=== PATIENT | male | born 1970 | race Caucasian/White ===

== ENCOUNTER 2019-04-13 21:32 | Emergency (ER) | payer SELFPAY ==
[2019-04-13 21:34] VITALS: BP 132/90
--- NOTE | 2019-04-13 21:38 | ER Report ---
History and Physical Time Seen By MD: 21:33 HPI/ROS CHIEF COMPLAINT: [facility] clearance HISTORY OF PRESENT ILLNESS: 49-year-old male brought in by police for detention clearance. Patient's grossly intoxicated. He put his right hand through a glass window. There are numerous cuts on his right hand, most appear to be superficial. Patient's refusing tetanus shot and care. Patient's uncooperative. REVIEW OF SYSTEMS: Unable to obtain due to poor cooperation Allergies: Coded Allergies: No Known Drug Allergies (Unverified , 04/13/19) Home Meds No Active Prescriptions or Reported Meds Reviewed Nurses Notes: Yes Constitutional Vital Sign - Last 24 Hours 04/13/19 21:34 Temp 98.7 Pulse 95 Resp 18 B/P (MAP) 132/90 Pulse Ox 89 O2 Delivery Room Air Physical Exam Vital signs stable, afebrile, pulse ox normal General Appearance: The patient is alert, has no immediate need for airway protection and no current signs of toxicity. Heavily slurred speech consistent with alcohol intoxication, heavy odor of EtOH on breath, palpation of the head and neck HEENT:: Pupils equal and round no injection. Oropharynx without dental trauma Respiratory: Chest is non tender, lungs are clear to auscultation. No chest wall tenderness Cardiac: regular rate and rhythm Gastrointestinal: Abdomen is soft and non tender, no masses, bowel sounds no rmal. Musculoskeletal: Neck: Neck is supple and non tender. Extremities have full range of motion and are non tender. Close examination, the right hands reveals numerous superficial cuts consistent with glass cuts. There are no palpable foreign bodies. There appears to be full range of motion of all digits. Skin: No rashes or lesions. DIFFERENTIAL DIAGNOSIS: After history and physical exam differential diagnosis was considered for detention clearance, alcohol intoxication, polysubstance abuse Medical Decision Making ED Course/Re-evaluation ED Course Patient was admitted to an examination room. H&P was done. The differential diagnosis was considered. On clinical examination. Patient voices no complaints. He is uncooperative. He appears grossly intoxicated. There is some superficial cuts on his right hand noted. Wounds are cleaned and dressed with gauze. She is medically cleared for detention admission. Decision to Disposition Date: Apr 13, 2019 Decision to Disposition Time: 21:38 Depart Departure Latest Vital Signs Vital Signs Date Time Temp Pulse Resp B/P (MAP) Pulse Ox O2 Delivery O2 Flow Rate FiO2 6/4/19 21:34 98.7 95 18 132/90 89 Room Air Impression: Primary Impression: Medical clearance for incarceration Additional Impressions: Alcohol intoxication Open wound of right hand Condition: Improved Disposition: [facility] TO HALF-WAY/CORRECTIONAL F New Scripts No Active Prescriptions or Reported Meds Patient Instructions: Acute Wound Care (ED), Alcohol Intoxication (ED) Additional Instructions: Medical cleared for detention admission Problem Qualifiers Additional Impressions: Alcohol intoxication Complication of substance-induced condition: uncomplicated Qualified Codes: F10.920 - Alcohol use, unspecified with intoxication, uncomplicated Open wound of right hand Encounter type: initial encounter Open wound type: puncture wound Foreign body presence: without foreign body Qualified Codes: S61.431A - Puncture wound without foreign body of right hand, initial encounter NAHID PITTMAN DO Apr 13, 2019 21:38
== END 2019-04-13 21:46 ==
LOC: ER 21:38
DX: F10.920 Alcohol use, unspecified with intoxication, uncomplicated (principal); S61.431A Puncture wound without foreign body of right hand, initial encounter
CPT/HCPCS: 99281